=== PATIENT | female | born 1965 | race African-American/Black ===

== ENCOUNTER → 2016-12-13 | Outpatient (CLI) | payer OTHER ==
[~2016-12-13] MED LIST: BYDUREON2 MG SQ; CARISOPRODOL 3350 MG PO; GLIPIZIDE; GLUCOPHAGE XR500 MG PO; IBUPROFEN 600600 M1 PO; JANUMET; LIPITOR40 MG PO; LOTREL; LOTREL 5-10 MG1 EACH PO; MEDROLDOSEPACK PO; NAPROSYN500 MG PO; NORCO 5-325 TA1 EACH PO; NUVIGIL; PERCOCET 5-3251 EACH PO; TRAMADOL 50 MG50 MG PO; [UNRECOGNIZED DRUG - OTHER]
== END ==
LOC: RAD 01:02
DX: Z12.31 Encounter for screening mammogram for malignant neoplasm of breast (principal)

== ENCOUNTER → 2016-12-19 | Outpatient (CLI) | payer OTHER | LOC: ULTRA 04:03 | DX: N63 Unspecified lump in breast (principal); N60.09 Solitary cyst of unspecified breast ==

== ENCOUNTER → 2017-11-19 | Outpatient (CLI) | payer OTHER ==
[~2017-11-19] MED LIST changes: +ESTRACE0.5 MG PO; +VICTOZA0.6 MG/0.1 SUBQ; +ZOFRAN ODT4 MG PO
== END ==
LOC: ULTRA 11-17 11:48
DX: N63.10 Unspecified lump in the right breast, unspecified quadrant (principal)

== ENCOUNTER → 2017-12-05 | Outpatient (CLI) | payer OTHER ==
--- NOTE | ~2017-12-05 | EKG ---
[address] [address] ELECTROCARDIOGRAM REPORT Name: FEDERICO BRITO [id number]mission: 12/05/17 Attend Phys: Lawrence Nicholas MD Discharge: Date of : 65 Report #: [id number] THIS REPORT FOR: //name// [facility] Test Date: 2017-12-05 Test Time: 11:32:38 Pat Name: FEDERICO BRITO Department: Room: Gender: F [employer] [place] [employer] Operator: Anni PAREKH : 1965 Requested By: Lawrence Nicholas Order Number: [id number] MD: Ady Ferguson Measurements Intervals [place] Rate: 87 P: 39 ND: 166 QRS: 19 QRSD: 84 T: 54 QT: 365 QTc: 439 Interpretive Statements Sinus rhythm Normal tracing Compared to ECG 11/26/2014 05:43:02 No significant changes Electronically Signed On 12-07-2017 13:48:34 CDT by Ady Ferguson [email or web address] <ELECTRONICALLY SIGNED> By: Ady Ferguson MD, [facility] 12/07/17 1348 1132 31 Ady Ferguson MD, FACC /EPI
== END ==
LOC: RAD 10:10
DX: I10 Essential (primary) hypertension (principal); N63.20 Unspecified lump in the left breast, unspecified quadrant; N63.10 Unspecified lump in the right breast, unspecified quadrant; E11.9 Type 2 diabetes mellitus without complications; R92.8 Other abnormal and inconclusive findings on diagnostic imaging of breast

== ENCOUNTER 2017-12-18 22:18 | Emergency (ER) | payer OTHER ==
[~2017-12-18] VITALS: Ht 165.1 cm; Wt 67.1 kg
[~2017-12-18 22:18] MED LIST changes: -ESTRACE0.5 MG PO; -VICTOZA0.6 MG/0.1 SUBQ; -ZOFRAN ODT4 MG PO
[2017-12-18] MEDS ORDERED: ESTRACE0.5 MG PO (22:29)
[2017-12-18] MEDS ORDERED: VICTOZA0.6 MG/0.1 SUBQ (22:29)
[2017-12-18 23:01] LABS: ABSOLUTE NEUTROPHILS 3.3 thou/uL (1.4-8.2); BASOPHILS 1.2 % (0.0-2.0); HEMATOCRIT 40.1 % (37.0-47.0); HEMOGLOBIN 13.5 gm/dL (12.0-15.0); LYMPHOCYTES 39.4 % (24.0-44.0); MCH 28.5 pg (26.0-34.0); MCHC 33.7 g/dL (28.0-37.0); MCV 84.6 fL (80.0-100.0); MONOCYTES 7.3 % (1.0-8.0); PLATELET COUNT 329 thou/uL (150-400); POLYS 50.1 % (36.0-66.0); RBC 4.74 mil/uL (4.20-5.00); RDW 13.4 % (10.5-14.5); WBC 6.5 thou/uL (4.0-11.0)
[2017-12-18 23:03] LABS: ANION GAP 9 mmol/L (7-16); BUN 12 mg/dL (7-18); CALCIUM 8.8 mg/dL (8.5-10.1); CHLORIDE 103 mmol/L (98-107); CO2 26 mmol/L (21-32); CREATININE 0.7 mg/dL (0.6-1.0); GLUCOSE 229 mg/dL (74-106); POTASSIUM 3.4 mmol/L (3.5-5.1); SODIUM 138 mmol/L (136-145)
[2017-12-18 23:09] LABS: ALBUMIN 3.4 g/dL (3.4-5.0); DIRECT BILIRUBIN < 0.1 mg/dL (<0.1-0.3); LIPASE 180 U/L (73-393); SGOT 21 U/L (15-37); SGPT 31 U/L (30-65); TOTAL BILIRUBIN 0.3 mg/dL (<0.1-1.0); TOTAL PROTEIN 7.3 g/dL (6.4-8.2)
[2017-12-18 23:56] LABS: SQUAMOUS 4-10 Moderate /LPF (0-3); URINE RBC >20 Many /HPF (0-2)
[2017-12-18 23:57] LABS: CASTS None Seen /LPF (None Seen); CRYSTALS None Seen /LPF (None Seen); URINE BILIRUBIN NEGATIVE (Negative); URINE BLOOD 3+ (Negative); URINE CLARITY CLOUDY; URINE GLUCOSE-RANDOM* 3+ (Negative); URINE KETONES TRACE (Negative); URINE LEUKOCYTES-REFLEX NEGATIVE (Negative); URINE NITRITE-REFLEX NEGATIVE (Negative); URINE PROTEIN (DIPSTICK) 1+ (Negative); URINE UROBILINOGEN 0.2 E.U./dl (0.2-1.0); URINE WBC-REFLEX 0-5 Rare /HPF (0-5)
[2017-12-18 23:59] LABS: URINE COLOR DARK YELLOW/BROWN
[2017-12-19] MEDS ORDERED: NORCO 5-325 TA1 EACH PO (01:05)
[2017-12-19] MEDS ORDERED: ZOFRAN ODT4 MG PO (01:05)
[2017-12-19 01:10] VITALS: BP 126/73
== END 2017-12-19 01:23 | disposition home or self-care (01) ==
LOC: ER 22:18
PROVIDERS: Emergency Medicine
DX: N20.1 Calculus of ureter (principal); I10 Essential (primary) hypertension; E11.9 Type 2 diabetes mellitus without complications; E78.00 Pure hypercholesterolemia, unspecified; Z90.710 Acquired absence of both cervix and uterus

== ENCOUNTER 2017-12-19 22:58 | Inpatient (IN) | payer OTHER ==
[~2017-12-19] VITALS: Ht 167.6 cm; Wt 68.0 kg
--- NOTE | ~2017-12-19 | D ---
[facility] [place] [address] DISCHARGE SUMMARY Name: FEDERICO BRITO Room #: 432-P ADM IN M.R.#: [id number] Admission: 12/20/17 Attend Phys: Ronnie Pérez MD Discharge: Date of : 65 Report #: [id number] THIS REPORT FOR: //name// CC: Ronnie Bartholomew DATE OF SERVICE: 12/21/2017 DISCHARGE DIAGNOSES: 1. Left ureteral stone. The patient passed the stone. 2. Diabetes type 2. 3. Hypertension. 4. History of hyperlipidemia. DISCHARGE MEDICATIONS: Please see medication reconciliation form. HOSPITAL STAY: The patient is a 52-year-old female admitted to the hospital with back pain, nausea, vomiting. She was found to have left distal ureteral stone. She was started on IV fluids, started on Flomax. She passed the stone. The patient was seen and examined on 12/21/2017, she is feeling well. No headache, no dizziness, no chest pain, no shortness of breath and no abdominal pain. She has a little bit upper back pain, she attributes lying in the bed, which she did not feel that very comfortable. Her urine was strained and she passed the stone. PHYSICAL EXAMINATION: VITAL SIGNS: Temperature 96.8, pulse 76, respirations 17, blood pressure 110/68. HEENT: Head normocephalic. Oral mucosa pink, moist. NECK: Supple. LUNGS: Showed clear breath sounds. CARDIAC: S1, S2 normal. Rhythm is regular. ABDOMEN: Soft, nontender, nondistended. Bowel sounds normoactive. EXTREMITIES: Shows no edema, no calf tenderness. There is no any new blood work. The patient is feeling well. She passed the stone. She will be discharging home in stable and improved condition. She was instructed to follow up with primary care doctor. CONDITION ON DISCHARGE: Stable and improved. By: 1438 1455 Priscilla Worley MD /nt
[~2017-12-19 22:58] MED LIST changes: +ESTRACE0.5 MG PO; +VICTOZA0.6 MG/0.1 SUBQ; +ZOFRAN ODT4 MG PO
[2017-12-19 23:13] VITALS: BP 143/86
[2017-12-19 23:40] LABS: ABSOLUTE NEUTROPHILS 9.6 thou/uL (1.4-8.2); BASOPHILS 0.8 % (0.0-2.0); EOSINOPHILS 0.3 % (0.0-3.0); HEMATOCRIT 41.4 % (37.0-47.0); LYMPHOCYTES 11.9 % (24.0-44.0); MCH 28.2 pg (26.0-34.0); MCHC 33.8 g/dL (28.0-37.0); MCV 83.5 fL (80.0-100.0); MONOCYTES 5.4 % (1.0-8.0); PLATELET COUNT 301 thou/uL (150-400); POLYS 81.6 % (36.0-66.0); RBC 4.96 mil/uL (4.20-5.00); RDW 13.6 % (10.5-14.5); WBC 11.7 thou/uL (4.0-11.0)
[2017-12-19 23:47] LABS: CALCIUM 9.3 mg/dL (8.5-10.1); CREATININE 0.9 mg/dL (0.6-1.0); POTASSIUM 3.4 mmol/L (3.5-5.1)
[2017-12-20 01:19] VITALS: BP 143/86
[2017-12-20 01:22] VITALS: BP 117/62
[2017-12-20 02:10] VITALS: BP 108/67
[2017-12-20 05:42] LABS: CALCIUM 8.3 mg/dL (8.5-10.1); CREATININE 0.6 mg/dL (0.6-1.0); POTASSIUM 3.5 mmol/L (3.5-5.1)
[2017-12-20 08:25] VITALS: BP 109/66
[2017-12-20 16:18] VITALS: BP 122/77
[2017-12-20 20:00] VITALS: BP 109/67
[2017-12-21 04:00] VITALS: BP 108/72
[2017-12-21 09:18] VITALS: BP 110/68
[2017-12-21 14:33] VITALS: BP 110/68
== END 2017-12-21 15:31 | disposition home or self-care (01) | DRG 694 ==
LOC: ER 22:58 → EROBS 12-20 00:43 → ER 12-20 00:43 → 4E 12-20 01:41 → EROBS 12-20 01:41 → 4E 12-20 17:05
PROVIDERS: Emergency Medicine; Nurse Practitioner Acute Care
DX: N20.2 Calculus of kidney with calculus of ureter (principal); E11.9 Type 2 diabetes mellitus without complications; I10 Essential (primary) hypertension; E87.6 Hypokalemia; E78.00 Pure hypercholesterolemia, unspecified; Z90.710 Acquired absence of both cervix and uterus; Z90.721 Acquired absence of ovaries, unilateral
CPT/HCPCS: 10084

== ENCOUNTER → 2018-06-30 | Outpatient (CLI) | payer OTHER | LOC: RAD 01:30 | DX: N63.13 Unspecified lump in the right breast, lower outer quadrant (principal); R92.2 Inconclusive mammogram; Z98.890 Other specified postprocedural states ==

== ENCOUNTER → 2018-12-02 | Outpatient (CLI) | payer OTHER | LOC: RAD 00:59 | DX: Z12.31 Encounter for screening mammogram for malignant neoplasm of breast (principal) ==

== ENCOUNTER → 2018-12-03 | Outpatient (CLI) | payer OTHER | LOC: RAD 16:29 | DX: M54.16 Radiculopathy, lumbar region (principal) ==

== ENCOUNTER 2019-01-16 15:29 | Emergency (ER) | payer OTHER ==
[~2019-01-16] VITALS: Ht 165.1 cm; Wt 64.9 kg
[2019-01-16 15:30] VITALS: BP 119/76
[2019-01-16] MEDS ORDERED: NORCO 5-325 TA1 EACH PO (16:01)
[2019-01-16] MEDS ORDERED: CYCLOBENZAPRINE5 MG PO (16:01)
== END 2019-01-16 16:13 | disposition home or self-care (01) ==
LOC: ER 15:29
DX: M54.5 Low back pain (principal); M79.604 Pain in right leg; I10 Essential (primary) hypertension; E11.9 Type 2 diabetes mellitus without complications; E78.00 Pure hypercholesterolemia, unspecified; Z90.710 Acquired absence of both cervix and uterus; Z87.442 Personal history of urinary calculi; Z98.890 Other specified postprocedural states; Z90.721 Acquired absence of ovaries, unilateral; V89.2XXA Person injured in unspecified motor-vehicle accident, traffic, initial encounter; Y92.89 Other specified places as the place of occurrence of the external cause; Y93.89 Activity, other specified; Y99.8 Other external cause status

== ENCOUNTER → 2020-03-10 | Outpatient (CLI) | payer OTHER ==
[~2020-03-10] MED LIST changes: +CYCLOBENZAPRINE5 MG PO
== END ==
LOC: BC 10:22
PROVIDERS: ATTEND Nurse Practitioner
DX: Z12.31 Encounter for screening mammogram for malignant neoplasm of breast (principal); N64.89 Other specified disorders of breast

== ENCOUNTER → 2020-04-03 | Outpatient (CLI) | payer OTHER | LOC: BC 10:08 | PROVIDERS: ATTEND Radiology Diagnostic Radiology | DX: R92.8 Other abnormal and inconclusive findings on diagnostic imaging of breast (principal) ==

== ENCOUNTER → 2020-04-12 | Outpatient (CLI) | payer OTHER | LOC: LAB 09:33 | PROVIDERS: ATTEND Nurse Practitioner | DX: R06.02 Shortness of breath (principal); Z20.828 Contact with and (suspected) exposure to other viral communicable diseases ==

== ENCOUNTER → 2021-01-01 | Outpatient (CLI) | payer OTHER | LOC: BC 12-14 11:55 | PROVIDERS: ATTEND Nurse Practitioner | DX: R92.8 Other abnormal and inconclusive findings on diagnostic imaging of breast (principal) ==

== ENCOUNTER 2021-02-27 13:09 | Emergency (ER) | payer OTHER ==
[~2021-02-27] VITALS: Ht 167.6 cm; Wt 62.6 kg
[2021-02-27 13:48] LABS: ABSOLUTE NEUTROPHILS 3.5 thou/uL (1.4-8.2); EOSINOPHILS 1.5 % (0.0-3.0); HEMATOCRIT 39.9 % (37.0-47.0); HEMOGLOBIN 13.5 gm/dL (12.0-15.0); LYMPHOCYTES 35.7 % (24.0-44.0); MCH 29.3 pg (26.0-34.0); MCHC 33.9 g/dL (28.0-37.0); MCV 86.5 fL (80.0-100.0); MONOCYTES 4.4 % (1.0-8.0); PLATELET COUNT 324 thou/uL (150-400); POLYS 57.4 % (36.0-66.0); RBC 4.61 mil/uL (4.20-5.00); RDW 13.6 % (10.5-14.5); WBC 6.2 thou/uL (4.0-11.0)
[2021-02-27 14:03] LABS: ANION GAP 9 mmol/L (7-16); BUN 13 mg/dL (7-18); CALCIUM 9.3 mg/dL (8.5-10.1); CHLORIDE 103 mmol/L (98-107); CO2 30 mmol/L (21-32); CREATININE 0.6 mg/dL (0.6-1.0); GLUCOSE 92 mg/dL (74-106); POTASSIUM 3.6 mmol/L (3.5-5.1); SODIUM 142 mmol/L (136-145)
[2021-02-27 14:15] LABS: ALBUMIN 3.7 g/dL (3.4-5.0); SGOT 12 U/L (15-37); SGPT 22 U/L (30-65); TOTAL BILIRUBIN 0.4 mg/dL (0.2-1.0); TOTAL PROTEIN 7.5 g/dL (6.4-8.2); TROPONIN-I <0.06 ng/mL (<0.06)
[2021-02-27 16:53] VITALS: BP 134/82
--- NOTE | 2021-02-28 07:08 | EKG ---
[place] [address] [facility] [employer] [place] [address] ELECTROCARDIOGRAM REPORT Name: FEDERICO BRITO [id number] Admission: 02/27/21 Attend Phys: Discharge: 02/27/21 Date of : 65 Report #: [id number] [facility] ED Test Date: 2021-02-27 Test Time: 13:15:24 Pat Name: FEDERICO BRITO Department: Room: Gender: F [place] Fisher: : 1965 Requested By: Miesha Spencer Order Number: [id number] MD: Shawn Hickman Measurements Intervals [place] Rate: 87 P: 24 WV: 154 QRS: 10 QRSD: 78 T: 36 QT: 354 QTc: 426 Interpretive Statements Sinus rhythm Abnormal R-wave progression, early transition Compared to ECG 12/05/2017 11:32:38 No significant changes Electronically Signed On 02-28-2021 7:08:17 CDT by Shawn Hickman [email or web address] <ELECTRONICALLY SIGNED> By: Shawn Hickman MD, [facility] 02/28/21 0708 1315 1315 Shawn Hickman MD, FACC /EPI
== END 2021-02-27 17:10 | disposition home or self-care (01) ==
LOC: ER 13:09
PROVIDERS: Student in an Organized Health Care Education/Training Program
DX: R07.89 Other chest pain (principal); M25.511 Pain in right shoulder; E11.9 Type 2 diabetes mellitus without complications; I10 Essential (primary) hypertension; Z98.51 Tubal ligation status; Z98.890 Other specified postprocedural states; Z90.711 Acquired absence of uterus with remaining cervical stump; Z87.442 Personal history of urinary calculi

== ENCOUNTER → 2021-06-25 | Outpatient (CLI) | payer OTHER | LOC: BC 09:19 | PROVIDERS: ATTEND Nurse Practitioner | DX: Z12.31 Encounter for screening mammogram for malignant neoplasm of breast (principal) ==